=== PATIENT | female | born 1945 | race Caucasian/White ===

== ENCOUNTER 2019-08-18 12:39 | Outpatient (CLI) | payer MEDICARE, OTHER ==
[~2019-08-18 12:39] MED LIST: FURO20TA3 PO; LISI-170 PO; METO25TA35 PO; SPIR25TA5 PO
== END 2019-08-18 23:59 | disposition home or self-care (01) ==
LOC: CFH 12:39
PROVIDERS: ATTEND Internal Medicine Cardiovascular Disease
DX: I08.3 Combined rheumatic disorders of mitral, aortic and tricuspid valves (principal); I10 Essential (primary) hypertension; J44.9 Chronic obstructive pulmonary disease, unspecified; I42.9 Cardiomyopathy, unspecified; Z87.891 Personal history of nicotine dependence; Z83.3 Family history of diabetes mellitus; Z82.49 Family history of ischemic heart disease and other diseases of the circulatory system; Z82.3 Family history of stroke; I50.9 Heart failure, unspecified
CPT/HCPCS: 93306

== ENCOUNTER → 2021-03-21 | Outpatient (CLI) | payer MEDICARE, OTHER | END | disposition home or self-care (01) | LOC: CFH 11:04 | PROVIDERS: ATTEND Internal Medicine Cardiovascular Disease | DX: I08.8 Other rheumatic multiple valve diseases (principal); I42.9 Cardiomyopathy, unspecified; I11.0 Hypertensive heart disease with heart failure; I50.9 Heart failure, unspecified; J44.9 Chronic obstructive pulmonary disease, unspecified; Z87.891 Personal history of nicotine dependence | CPT/HCPCS: 93306 ==

== ENCOUNTER 2021-06-27 13:14 | Outpatient (CLI) | payer MEDICARE, OTHER ==
[2021-06-27] MEDS ORDERED: HEPARIN 1,000 UNITS/ML, 10ML ONE (13:31)
== END 2021-06-27 23:59 | disposition home or self-care (01) ==
LOC: RAD 13:14
PROVIDERS: ATTEND Internal Medicine Cardiovascular Disease
DX: I42.9 Cardiomyopathy, unspecified (principal)
CPT/HCPCS: 78472; A9560; J1644